=== PATIENT | female | born 1955 | race Caucasian/White ===

== ENCOUNTER 2021-02-17 10:47 | Day surgery (SDC) | payer OTHER ==
[2021-02-13 13:47] LABS: Absolute Lymphocytes (CBC) 1.9 K/uL (0.7-4.9); Basophils % 0.3 % (0-1.3); Hematocrit 38.8 % (36.0-45.0); Lymphocytes % 24.7 % (15.3-44.8); MPV 9.7 fL (7.6-11.3); RBC Red Blood Cell Count 4.32 M/uL (3.86-4.86)
--- NOTE | 2021-02-13 13:48 | RAD REPORT ---
EXAM DESCRIPTION: RAD - Chest Pa And Lat (2 Views) - 02/13/2021 1:41 pm CLINICAL HISTORY: preop Chest pain. COMPARISON: <Comparisons> FINDINGS: The lungs are clear. Small left pleural effusion versus pleural thickening. The heart is u pper limit of normal in size. No displaced fractures.
[2021-02-13 13:54] LABS: Potassium 3.8 mmol/L (3.5-5.1)
[2021-02-13 14:14] LABS: Protime INR 0.95
--- NOTE | 2021-02-14 07:45 | EKG ---
Test Date: 2021-02-13 Test Time: 12:18:49 Stem Roller Operator: BERNICE MEASUREMENT RESULTS: Intervals: Rate: 56 ME: 154 QRSD: 84 QT: 442 QTc: 426 [place]: P: 60 ME: 154 QRS: 83 T: 86 INTERPRETIVE STATEMENTS: Sinus bradycardia with frequent premature ventricular complexes in a pattern of bigeminy ST & T wave abnormality, consider anterolateral ischemia Abnormal ECG Compared to ECG 10/05/2004 03:43:00 ST (T wave) deviation now present Sinus rhythm no longer present T-wave abnormality no longer present Prolonged QT interval no longer present Possible ischemia still present Electronically Signed On 02-14-21 07:42:46 CDT by Duncan Garcia
[2021-02-17] MEDS ORDERED: NA CHLORIDE 0.9% 0 ML ONE (11:22)
== END 2021-02-17 11:45 | disposition home or self-care (01) ==
LOC: CCL 10:47
PROVIDERS: ATTEND Internal Medicine
DX: R94.39 Abnormal result of other cardiovascular function study (principal); R07.9 Chest pain, unspecified; Z53.29 Procedure and treatment not carried out because of patient's decision for other reasons; I10 Essential (primary) hypertension; I49.3 Ventricular premature depolarization; E78.5 Hyperlipidemia, unspecified
CPT/HCPCS: 36415; 71046; 80048; 85025; 85610; 85730; 93005; J7040

== ENCOUNTER 2021-02-20 10:56 | Day surgery (SDC) | payer OTHER ==
[2021-02-20] MEDS ORDERED: NA CHLORIDE 0.9% 500 ML ONE (11:24)
[2021-02-20] MEDS ORDERED: HEPARIN 5000 UNIT/ML 1 ML VIAL ONE (12:11)
[2021-02-20] MEDS ORDERED: MIDAZOLAM HCL 2 MG/2 ML INJ ONE (12:11)
[2021-02-20] MEDS ORDERED: HEPA 1000U/500MLS 2,000 UNIT/1,000 ML BAG IV ONE (12:11)
[2021-02-20] MEDS ORDERED: FENTANYL CITR 100 MCG/2 ML ONE (12:11)
[2021-02-20] MEDS ORDERED: VERAPAMIL HCL 10 MG/4 ML VIAL IV ONE (12:12)
[2021-02-20] MEDS ORDERED: ATROPINE SULF 1 MG/10 ML SYR IV ONE (12:12)
[2021-02-20] MEDS ORDERED: NITROGLYCERIN 100 MCG/ML SYR (for cath lab use only) IV ONE (12:12)
[2021-02-20] MEDS ORDERED: NITROGLYCERIN/D5W 25 MG/250 ML BTL IV ONE (12:12)
[2021-02-20] MEDS ORDERED: LIDOCAINE 1% 20 ML MDV ONE (12:45)
[2021-02-20] MEDS ORDERED: TICAGRELOR 90 MG TABLET PO ONE (12:45)
[2021-02-20] MEDS ORDERED: ASPIRIN 325 MG TAB ONE (12:46)
[2021-02-20 15:03] VITALS: TEMP 97.7
[2021-02-20 15:30] VITALS: BP 155/65; O2SAT 100
--- NOTE | 2021-02-24 11:37 | OP ---
Date of Procedure: 02/19/2021 Surgeon: GRAEME RAMSAY Procedures Performed: 1.Selective coronary angiogram. 2.Left heart catheterization. Indication: Chest pain with abnormal stress test suggestive of inferior ischemia. Access: Right radial artery 6-Kenyan closed with TR band. Complications: None. Bleeding: Less than 10 mL. Description Of Procedure: After risks, benefits, and alternatives were explained, the patient agreed to the procedure and signed informed consent. The patient was brought into cardiac catheterization laboratory, prepped and draped in usual sterile fashion. Then, we accessed right radial artery using pediatric micropuncture kit and placed a 6-Kenyan slender sheath and then took a 5-[place]yan [place] 4.0 catheter into the aortic root over a J-wire, engaged left main and then took a 6-Kenyan JR4 diagnosti c catheter over the aortic root, engaged right coronary artery, took standard views and the same cath eter was advanced over the wire into the LV. Obtained the LVEDP and pullback recorded. No differenc e and pressure. Then, removed the catheter and sheath and placed a TR band with good hemostasis. Findings: 1.Left main is large and normal. 2.LAD; moderate-sized vessel, normal. All diagonal branches are normal. 3.Left circumflex; small and normal. 4.RCA; large, dominant and normal. 5.LVEDP of 10 mmHg. Conclusion: 1.Normal coronary arteries. 2.Normal LVEDP of 10 mmHg. Recommendations: Medical management. Look for other causes of chest pain other than coronary artery disease. SR/MODL Voice ID: [id number] Report ID: [id number]
== END 2021-02-20 15:45 | disposition home or self-care (01) ==
LOC: CCL 10:56
PROVIDERS: ATTEND Internal Medicine
DX: R07.9 Chest pain, unspecified (principal); I49.3 Ventricular premature depolarization; I10 Essential (primary) hypertension; E78.5 Hyperlipidemia, unspecified
CPT/HCPCS: 93458; C1893; J1644 ×2; J2250; J3010; J7040

== ENCOUNTER → 2022-02-11 | Day surgery (SDC) | payer OTHER ==
--- NOTE | 2022-02-11 11:48 | RAD REPORT ---
EXAM DESCRIPTION: US - Guided FNA Non Breast - 02/11/2022 10:53 am CLINICAL HISTORY: Thyroid nodule ICD D44.0 COMPARISON: December 2021 TECHNIQUE: Risks, benefits and alternatives of procedure explained to the patient and informed conse nt obtained. Skin and subcutaneous tissues anesthetized with lidocaine. Under sonographic guidance, five 25 gauge needle passes were obtained into the dominant nodule within the right lobe of the thyroid gland Specimens given to pathology. Patient experienced no immediate complication IMPRESSION: Fine-needle aspiration of a dominant nodule within right lobe of the thyroid gland
== END ==
LOC: FNA 10:51 → RAD 10:52
PROVIDERS: ATTEND Otolaryngology
PROC: 0G9H3ZX Drainage of Right Thyroid Gland Lobe, Percutaneous Approach, Diagnostic (ICD-10-PCS; principal; 2022-02-11)
DX: D44.0 Neoplasm of uncertain behavior of thyroid gland (principal)
CPT/HCPCS: 88162